=== PATIENT | male | born 1950 | race Caucasian/White ===

== ENCOUNTER 2020-02-01 06:26 | Day surgery (SDC) | payer MEDICARE ==
[2020-02-01] MEDS ORDERED: Lactated Ringers 1,000 ML IV SCH (06:30)
[2020-02-01] MEDS ORDERED: Lactated Ringers 1,000 ML IV ONE (07:02)
[2020-02-01] MEDS ORDERED: DIPRIVAN 200 MG/20 ML IV ONE ×2 (07:57→08:18)
[2020-02-01 09:44] VITALS: BP 121/75; PULSE 56; O2SAT 94
--- NOTE | 2020-02-01 10:32 | OP ---
SURGERY DATE/TIME: 02/01/2020 0807 PREOPERATIVE DIAGNOSIS: History of colon polyps. POSTOPERATIVE DIAGNOSES: 1) Polyp in the sigmoid colon. 2) Multiple small polyps in the rectum. 3) Sigmoid diverticulosis. PROCEDURE: Colonoscopy with hot polypectomy snare and cold forceps biopsy. SURGEON: Dr. Aldana. ANESTHESIA: MAC. Medications given by anesthesia department. HISTORY: The patient is a 69 year-old white male patient presenting now for surveillance colonoscopy. He previously had colon polyps removed. He is here for evaluation. The patient was reappraised of the risks of the procedure including the risk of perforation, phlebitis, untoward reaction to medication, bleeding and missed lesions. The patient verbalized his understanding and desired to have the procedure performed. DESCRIPTION OF PROCEDURE: The patient was given the medications by the anesthesia department. He had continuous pulse oximetry, ECG monitoring, intermittent blood pressure monitoring and tidal CO2 monitoring during the examination. He was placed in the left lateral decubitus position. A digital rectal examination was performed and revealed normal anal sphincter tone, no masses and normal prostate. The flexible Olympus pediatric colonoscope was used to intubate the rectum. A view of the colon was developed sequentially to the cecum. Upon insertion and withdrawal there was noted what appeared to be an inflammatory polyp in the sigmoid colon and this was removed using hot polypectomy snare and retrieved for pathologic evaluation. There was also noted to be multiple small what appeared to be hyperplastic polyps in the rectum. These were biopsied using cold biopsy technique. There was also noted to be scattered sigmoid diverticula. The scope was removed from the patient who tolerated the procedure well and was sent back to OP recovery in good condition. The prep was noted to be good.
== END 2020-02-01 09:50 | disposition home or self-care (01) ==
LOC: SDC 06:26
PROVIDERS: ATTEND Family Medicine
DX: Z09 Encounter for follow-up examination after completed treatment for conditions other than malignant neoplasm (principal); Z86.010 Personal history of colon polyps; K57.30 Diverticulosis of large intestine without perforation or abscess without bleeding; D12.7 Benign neoplasm of rectosigmoid junction; I10 Essential (primary) hypertension; I25.10 Atherosclerotic heart disease of native coronary artery without angina pectoris; Z79.899 Other long term (current) drug therapy
CPT/HCPCS: J2704

== ENCOUNTER 2022-01-23 10:48 | Day surgery (SDC) | payer MEDICARE ==
[2022-01-23] MEDS ORDERED: Xylocaine 1% Vial 30 ML PF IJ ONE (10:49)
[2022-01-23] MEDS ORDERED: Sodium Chloride 0.9(Preservative Free) 10 ML IJ ONE (10:49)
[2022-01-23] MEDS ORDERED: Depo-Medrol 40 MG/ML IM ONE (10:49)
[2022-01-23] MEDS ORDERED: Lactated Ringers 1,000 ML IV ONE (12:48)
[2022-01-23] MEDS ORDERED: MORPHINE SULFATE 2 MG INJ ONE ×2 (13:32→13:38)
[2022-01-23] MEDS ORDERED: TORAdol 30 mg Injection ONE (13:44)
--- NOTE | 2022-01-23 14:17 | XRAY ---
Indication: Lumbar ODETTE. Intraoperative fluoroscopy provided for 19 seconds. 2 digital spot image submitted for interpretation demonstrates midline posterior needle tip projecting just posterior to last lumbar segment. Small amount of contrast injected for needle tip placement. Correlate with intraoperative findings/report.
--- NOTE | 2022-01-23 14:40 | XRAY ---
19 seconds fluoroscopy time in surgery for lumbar ODETTE.
== END 2022-01-23 13:58 | disposition home or self-care (01) ==
LOC: SDC-PAIN 10:48
PROVIDERS: ATTEND Psychiatry & Neurology Pain Medicine
DX: M54.16 Radiculopathy, lumbar region (principal); I10 Essential (primary) hypertension; Z79.899 Other long term (current) drug therapy
CPT/HCPCS: 62323; 72100; 77003; J1030; J1885; J2001; J2270; Q9966

== ENCOUNTER 2024-01-27 05:59 | Day surgery (SDC) | payer MEDICARE ==
[2024-01-27] MEDS: Lactated Ringers 1,000 ML IV SCH (06:23)
[2024-01-27 06:30] VITALS: RESP 16
[2024-01-27] MEDS ORDERED: DIPRIVAN 200 MG/20 ML IV ONE ×2 (07:58→08:18)
[2024-01-27] MEDS ORDERED: Versed 2 MG/2 ML Injection ONE (07:58)
[2024-01-27 08:37] VITALS: TEMP 97.4
[2024-01-27 08:48] VITALS: O2SAT 94
[2024-01-27 08:50] VITALS: BP 105/76; PULSE 79
--- NOTE | 2024-01-27 10:12 | OP ---
SURGERY DATE/TIME: 01/26/2024 0807 PREOPERATIVE DIAGNOSIS: Screening exam. POSTOPERATIVE DIAGNOSIS: Severe diverticulosis and small polyps. PROCEDURE: Colonoscopy with cold forceps biopsy. SURGEON: Dr. Aldana. ANESTHESIA: Medications given by anesthesia department. HISTORY: The patient is a 73-year-old white male patient here for screening colonoscopy. The patient was appraised of the risks of the procedure including the risk of perforation, phlebitis, untoward reaction to medication, bleeding and missed lesions. The patient verbalized his understanding and desired to have the procedure performed. DESCRIPTION OF PROCEDURE: The patient was given the medications by the anesthesia department. He had continuous pulse oximetry, ECG monitoring and intermittent blood pressure monitoring during the examination. He was placed in the left lateral decubitus position. A digital rectal examination was performed and revealed normal anal sphincter tone, no masses and a normal prostate. The flexible Olympus pediatric colonoscope was used to intubate the rectum. A view of the colon was developed sequentially to the cecum. Upon insertion and withdrawal was noted moderate to severe diverticulosis mostly in the sigmoid colon but present throughout the colon. There was also noted to be small polyps that were biopsied using cold forceps biopsy technique for evaluation. The scope was removed from the patient who tolerated the procedure well and was sent back to OP recovery in good condition. The prep was noted to be fair to good.
== END 2024-01-27 09:00 | disposition home or self-care (01) ==
LOC: SDC 05:59
PROVIDERS: ATTEND Family Medicine
DX: Z12.11 Encounter for screening for malignant neoplasm of colon (principal); K57.30 Diverticulosis of large intestine without perforation or abscess without bleeding; D12.2 Benign neoplasm of ascending colon; D12.5 Benign neoplasm of sigmoid colon; D12.3 Benign neoplasm of transverse colon
CPT/HCPCS: 93005; 99100; J2250; J2704

== ENCOUNTER 2025-02-16 06:00 | Day surgery (SDC) | payer MEDICARE ==
[2025-02-16] MEDS: celeBREX 100 MG PO ONE (06:22)
[2025-02-16] MEDS: CEFAZOLIN 2 GM/100 ML NaCl 2 GM/100 ML IVPB IV SCH ×2 (06:22→16:57)
[2025-02-16] MEDS: Decadron 4 MG PO ONE (06:23)
[2025-02-16] MEDS: NEURONTIN PO ONE (06:23)
[2025-02-16] MEDS: Lactated Ringers 1,000 ML IV SCH (06:23)
[2025-02-16] MEDS: TYLENOL EXTRA STRENGTH 500 MG PO ONE (06:23)
[2025-02-16] MEDS: TRANEXAMIC 1,000 MG/100ML-NACL 1,000 MG/100 ML PIGGYBACK IV ONE (06:24)
[2025-02-16] MEDS ORDERED: VANCOCIN INJECTION IV ONE (06:27)
[2025-02-16] MEDS ORDERED: SUBLIMAZE 100 MCG/2 ML ONE (07:48)
[2025-02-16] MEDS ORDERED: Versed 2 MG/2 ML Injection ONE (07:48)
[2025-02-16] MEDS ORDERED: Marcaine Mpf 0.5% Vial 30 Ml ONE (07:51)
[2025-02-16] MEDS ORDERED: EXPAREL 133 MG/10 ML VIAL IJ ONE (07:51)
[2025-02-16] MEDS ORDERED: propofoL IV ONE (07:53)
[2025-02-16] MEDS ORDERED: ROCURONIUM BROMIDE IV ONE (08:14)
[2025-02-16] MEDS ORDERED: Ephedrine Sulfate 50 MG/ML ONE (08:23)
[2025-02-16] MEDS ORDERED: Zofran 4 MG/2 ML VIAL ONE (08:50)
[2025-02-16] MEDS ORDERED: BRIDION 200MG/2ML IV ONE (08:50)
[2025-02-16] MEDS ORDERED: TORAdol 30 mg Injection ONE (08:50)
[2025-02-16] MEDS ORDERED: DILAUDID 2 MG INJECTION ONE (09:00)
[2025-02-16] MEDS ORDERED: Lactated Ringers 1,000 ML IV ONE (09:06)
[2025-02-16] MEDS ORDERED: DILAUDID 0.5 MG/0.5 ML SYRINGE ONE (10:35)
[2025-02-16] MEDS ORDERED: Hydromorphone 1 mg/ml Injection ONE (11:06)
--- NOTE | 2025-02-16 11:40 | XRAY ---
Indication: Postop exam. Comparison: December 23, 2024 AP/crosstable lateral right knee demonstrates new total knee arthroplasty with intact prosthesis, postoperative soft tissue swelling, and soft tissue emphysema. Stable osteopenia and scattered vascular calcifications. No other abnormalities.
[2025-02-16] MEDS ORDERED: TYLENOL 325 MG PO PRN ×2 (13:32→13:36)
[2025-02-16] MEDS ORDERED: Hydromorphone 1 mg/ml Injection IV PRN (13:34)
[2025-02-16] MEDS ORDERED: NORCO 10-325 MG PO PRN (13:34)
[2025-02-16] MEDS ORDERED: MEDICATION INTERVENTION MC SCH (14:00)
[2025-02-16] MEDS: NORCO 7.5/325 MG TAB PO PRN (14:24)
[2025-02-16] MEDS: Sodium Chloride 0.9% 1000 ML 1,000 ML IV SCH (14:28)
[2025-02-16] MEDS: ZOCOR 20MG PO SCH (16:26)
[2025-02-16] MEDS: HYTRIN 1 MG PO SCH (16:26)
[2025-02-16] MEDS: Lotensin PO SCH (16:26)
[2025-02-17 05:01] VITALS: RESP 19; TEMP 97.2
[2025-02-17 05:22] LABS: Hematocrit 35.9 % (40.1-51.0); Hemoglobin 11.5 g/dL (13.7-17.5); Mean Cell Volume 94.5 fL (79.0-92.2); Mean Corpuscular Hemoglobin 30.3 pg (25.7-32.2); Platelet Count 201 x10^3/uL (163-337); Red Cell Distribution Width 13.6 % (11.6-14.4); White Blood Count 9.9 x10^3/uL (4.23-9.07)
[2025-02-17 08:27] VITALS: BP 128/66; PULSE 68; O2SAT 96
[2025-02-17] MEDS: NORVASC 5 MG PO SCH (08:48)
[2025-02-17] MEDS: Lopressor 50 MG PO SCH (08:48)
[2025-02-17] MEDS ORDERED: TRIAMTERENE 50 MG PO SCH (10:00)
--- NOTE | 2025-02-17 10:34 | OP ---
SURGERY DATE/TIME: 02/16/2025 8243-5730 PREOPERATIVE DIAGNOSIS: Osteoarthritis right knee. POSTOPERATIVE DIAGNOSIS: Osteoarthritis right knee. PROCEDURE: Right total knee replacement and arthroplasty utilizing a [employer] instrumentation with a 10 femoral component press-fit, a size F tibial component cemented with a 10 mm polyethylene bearing tray, a 25 x 8 mm single peg poly patella cemented. SURGEON: Jarrett Traylor II, ANESTHESIA: Spinal with block for postop pain control. DESCRIPTION OF PROCEDURE AND FINDINGS: The patient was identified, and informed consent was obtained. The patient was taken to the operative suite where the block was administered. He was then placed into the supine position on the operating table after the spinal anesthetic and prepped and draped in the usual sterile fashion. Standard time-out was taken. The leg was exsanguinated and the tourniquet elevated to 350 mmHg. A standard midline incision was accomplished with the knee in a mildly flexed position. Skin and subcutaneous tissue was incised. Dissection was carried out through the subcutaneous tissue and a medial parapatellar incision was accomplished. Copious amount of grade 1 synovial fluid was encountered. The joint was noted to have hard eburnated bone along the entire weightbearing surface of the lateral femoral condyle and tibial plateau. Significant degenerative changes were noted in the patellofemoral joint as well and ogxi-to-levwosew degenerative changes in the medial compartment. At this point portions of the medial and lateral menisci as well as fat pad were excised for visualization. The patient was anterior cruciate deficient. The stump was excised. Z retractors were positioned medially and laterally, and the femoral aiming guide was then placed and held in position with its pins. The distal femoral cut was then accomplished followed by application of a 4-in-1 cutting block. The anterior and posterior and chamfer cuts were also accomplished with the oscillating saw. Wafers of bone were removed, and at this point any remaining osteophytes were also removed. At this point, any remaining portions of menisci were excised. The tibial aiming guide was then placed and held in position with its pins. Proximal wafer of tibia was then resected with the oscillating saw, and the wafer of bone was removed. At this point, the tibial trial tray was placed and held with its pins in appropriate rotation. The trial femoral component was then applied, and it was deemed that a 10 mm polyethylene tray was the appropriate size to give soft tissue balance in all planes of motion. At this point, our attention was turned to the patella where the patella button was milled. The 8 x 25 patella trial button was then inserted. This restored the pre-resection height as determined by calipers. Patient did have some mild lateral tracking, and a limited lateral release was performed and the patella tracked very nicely at this point. At this point, the trial instrumentation was removed. Joint was copiously irrigated with the pulsed room inspector while the cement was being vacuum mixed. The tibia was then cemented into position. The cement gun was used to inject the cement into the interstices of the proximal tibia. The tibia was then impacted into position, and excess cement was removed. Femoral component was then press-fit into position. The 10 mm trial tray was then reinserted. The knee was held in extension during the curing process, and any remaining excess cement was removed. The patellar button was then cemented into position and held with this clamp. Again excess cement was removed. Once all the cement had cured, the knee was placed through a range of motion, noted to have excellent tracking and excellent soft tissue balance. Trial tibial tray was removed, and the permanent tray was then inserted and locked into position. Excellent tracking was noted. The wound was then irrigated and closed with #2 Stratafix, 2-0 Monocryl, and 3-0 subcuticular Stratafix augmented with Dermabond and Prineo. An Aquacel dressing was applied. The patient was then transferred to the bed and taken to the recovery room in satisfactory condition having tolerated the procedure well.
== END 2025-02-17 10:10 | disposition home or self-care (01) ==
LOC: SDC 06:00 → MED SURG 11:35 → SDC 02-17 10:10
PROVIDERS: ATTEND Orthopaedic Surgery
DX: M17.11 Unilateral primary osteoarthritis, right knee (principal); I10 Essential (primary) hypertension
CPT/HCPCS: 01402; 27447; 36415; 64447; 73560; 76937; 76942; 85027; 94760; 97161; 97530; C1713; J0666; J0690; J1171; J1885; J2250; J2405; J2704; J3010; J3370; A9270-GY